=== PATIENT | female | born 1980 | race Caucasian/White ===

== ENCOUNTER 2023-11-26 08:42 | Observation (INO) | payer BC, SELFPAY ==
[2023-11-26] VITALS (7 sets, daily range): BP systolic 136–140; BP diastolic 76–96; PULSE 82–99; RESP 13–24; TEMP 36.4–36.5; O2SAT 99–100; BMI 25.4
--- NOTE | ~2023-11-26 | CT_ITS ---
EXAMINATION: CTA brain carotid DATE: 11/26/2023 09:31 INDICATION: Cerebral vascular accident. Left facial weakness. TECHNIQUE: Computed tomographic angiography (CTA) of the head was performed with 100 mL Omnipaque-350 intravenous contrast. CTA of the neck was performed with intravenous contrast. Automated exposure co ntrol and iterative reconstruction technique were employed. The dose-length product was 1070.65 mGy-c m. Maximum intensity projection and volume rendered 3D-reconstructions were created by the [address] on a separate workstation. COMPARISON: Head CT 11/26/2023 FINDINGS: HEAD CTA: There is no intracranial hemorrhage, acute infarction, or abnormal intracranial mass lesion . The ventricles are normal in size. The orbits are normal. The paranasal sinuses are clear. There is a small left mastoid effusion. The vertebral arteries are codominant. There is no significant stenos is of basilar artery or the posterior cerebral arteries. There is no significant stenosis of intracra nial internal carotid arteries or anterior or middle cerebral arteries. Anterior communicating artery is normal. There is no aneurysm. The posterior communicating arteries are normal. NECK CTA: There are no pathologically enlarged lymph nodes. There is no significant stenosis of the v ertebral arteries. There is minimal plaque in the proximal internal carotid arteries. There is 0% raymond nosis of the proximal right internal carotid artery relative to normal distal artery lumen diameter ( NASCET criteria). There is 0% stenosis of the proximal left internal carotid artery relative to kendra l distal artery lumen diameter. There is moderate spondylosis at C6-C7 and mild spondylosis at other levels. IMPRESSION: 1. Normal brain. No aneurysm or significant intracranial arterial stenosis. 2. 0% stenosis of the proximal internal carotid arteries relative to normal distal artery lumen diame ters (NASCET criteria). Reviewed, dictated and finalized at location A. PEMENT MAKER IMPRESSION: 1. Normal brain. No aneurysm or significant intracranial arterial stenosis. 2. 0% stenosis of the proximal internal carotid arteries relative to normal dis tamera artery lumen diameters (NASCET criteria).
--- NOTE | ~2023-11-26 | CT_ITS ---
EXAMINATION: CT brain wo con DATE: 11/26/2023 09:20 INDICATION: Cerebral vascular accident. Facial weakness. TECHNIQUE: Computed tomography (CT) of the head was performed without intravenous contrast. The mA wa s adjusted according to patient size. Iterative reconstruction technique was employed. The dose-lengt h product was 605.33 mGy-cm. COMPARISON: None FINDINGS: There is no intracranial hemorrhage, acute infarction, or abnormal intracranial mass lesion . There is a prominent perivascular space in the right basal ganglia. The ventricles are normal in si ze. The paranasal sinuses are clear. There is a small left mastoid effusion. The orbits are normal. IMPRESSION: 1. Normal brain. I called this result to Bharti Friedman. Reviewed, dictated and finalized at location A. VISUALIZATION DEVELOPER
--- NOTE | ~2023-11-26 | MR_ITS ---
MRI of the brain Clinical History: Right face paresthesia Technique: Axial and sagittal T1-weighted images were acquired. These were followed by axial T2-weigh lo, diffusion weighted, gradient, and FLAIR images. Coronal Following intravenous administration of 14 cc MultiHance gadolinium, T1-weighted fat-sat imaging was performed through the brain in the axia l and coronal planes. Coronal and axial T1-weighted postcontrast and coronal imaging was performed th rough the internal auditory canals. Findings: There is no acute infarct, intracranial hemorrhage, or mass lesion. No abnormal signal seen in the brain parenchyma. Ventricles and subarachnoid spaces are unremarkable. Orbits are unremarkable. There is mild fluid in left mastoid air cells. Remaining paranasal sinuses and right mastoid air cells are clear. Major intr acranial flow voids are intact. Sagittal midline structures are intact. No abnormal mass lesion seen at the internal auditory canals or cerebellopontine angle regions. No abnormal postcontrast enhancement identified. IMPRESSION: Unremarkable exam. Reviewed, dictated and finalized at location . NAUTICS TEACHER IMPRESSION: Unremarkable exam.
--- NOTE | ~2023-11-26 | XR_ITS ---
XR chest 1V portable DATE: 11/26/2023 09:39 INDICATION: Right facial numbness. Cerebrovascular accident. TECHNIQUE: Portable upright AP chest on at 0938 hours COMPARISON: None FINDINGS: Normal heart size. No hilar or mediastinal enlargement. No pulmonary infiltrate or consolid ation, pleural effusion or pulmonary vascular congestion or pneumothorax is detected. IMPRESSION: Negative Reviewed, dictated and finalized at location L. RUMENTAL MUSICIAN IMPRESSION: Negative
--- NOTE | 2023-11-26 09:05 | ECG_ITS ---
Measurements Intervals [place] Rate: 83 P: 60 [place]: 149 QRS: 6 QRSD: 96 T: 42 QT: 360 QTc: 425 Interpretive Statements SINUS RHYTHM NORMAL ECG NO PREVIOUS ECG AVAILABLE FOR COMPARISON Electronically Signed On 11-26-2023 10:00:02 THERMOSPRAY OPERATOR by Brian Layton D.O.
[2023-11-26 09:12] LABS: Glucose Point of Care 91 mg/dl (65-105)
[2023-11-26 09:17] LABS: Basophils Percent Auto 0.3 % (0.2-1.2); Eosinophils Absolute Auto 0.1 K/mm3 (0-0.3); Eosinophils Percent Auto 0.8 % (0-4.4); Hematocrit 40.5 % (37.0-47.0); Hemoglobin 13.4 g/dL (12.0-15.0); Immature Granulocyte Absolute 0.01 K/mm3 (0.00-0.031); Immature Granulocyte Percent A 0.1 % (0-0.5); Lymphocytes Absolute Auto 2.51 K/mm3 (0.9-3.2); Lymphocytes Percent Auto 34.5 % (18.3-44.2); Mean Corpuscular HGB Conc 33.1 g/dl (32-36); Mean Corpuscular Hemoglobin 29.2 pg (26-34); Mean Corpuscular Volume 88.2 fl (80-100); Mean Platelet Volume 8.9 fl (7.4-10.4); Monocytes Absolute Auto 0.6 K/mm3 (0.1-0.6); Neutrophils Absolute Auto 4.1 K/mm3 (1.3-6.7); Neutrophils Percent Auto 56.3 % (45.5-73.1); Platelet Count Result 246 k/mm3 (150-375); Red Blood Count 4.59 M/mm3 (4.2-5.4); Red Cell Distribution Width 12.1 % (11.5-14.5); White Blood Count 7.3 K/mm3 (4.5-10.0)
--- NOTE | 2023-11-26 09:19 | ED.NEUROSD ---
HPI - Neuro Symptoms/Deficit General Chief Complaint: Neuro Symptoms/Deficit <DELILAH Craven Last Filed: 11/26/23 18:25> Stated Complaint: right facial numbness <DELILAH Craven Last Filed: 11/26/23 18:25> Time Seen by Provider: 11/26/23 09:01 <DELILAH Craven Last Filed: 11/26/23 18:25> Source: patient <DELILAH Craven Last Filed: 11/26/23 18:25> Mode of arrival: ambulatory <DELILAH Craven Last Filed: 11/26/23 18:25> Limitations: no limitations <DELILAH Craven Last Filed: 11/26/23 18:25> History of Present Illness HPI Narrative: Patient is a 43-year-old female who presents the ED with report of right-sided facial paresthesias. Patient reports she has been having bilateral ear pain, worse on the right side for the last 3 days. States pain became worse last night. She also reports having intermittent blurry vision in her left eye over the last couple of days. She thought this may be related to her contacts and made an appointment with her eye doctor. This morning, when she woke up, she noticed a different sensation to her right-sided face, stating that right cheek and jaw felt numb. Her daughter then noticed her smile seemed unequal and patient prompted to the ED. Patient denies any slurred speech or confusion but states she felt foggy today. She also notes her taste was altered yesterday, describing things as tasting like metal. Denies numbness or weakness leg. Denies dizziness, headache, recent cough/cold sx's, fevers, ear drainage, N/V, rash. <DELILAH Craven Last Filed: 11/26/23 18:25> Related Data Home Medications: Home Medications Medication Instructions Recorded Confirmed Adult One Daily Multivitamin 1 tablet PO DAILY 11/26/23 11/26/23 lisinopril 10 mg tablet 10 mg PO HS 11/26/23 11/26/23 <Bharti Friedman PA-C - Last Filed: 11/26/23 18:25> Allergies/Adverse Reactions: Allergies Allergy/AdvReac Type Severity Reaction Status Date / Time No Known Allergies Allergy Verified 11/26/23 08:58 <Bharti Friedman PA-C - Last Filed: 11/26/23 18:25> Review of Systems Review of Systems: CONSTITUTIONAL: Denies fever, chills, or sweats. ENT: See HPI. CARDIOVASCULAR: Denies chest pain, palpitations, or edema. RESPIRATORY: Denies cough or dyspnea. GASTROINTESTINAL: Denies abdominal pain, nausea, vomiting. MUSCULOSKELETAL: Denies back pain, extremity pain, myalgia. NEUROLOGIC: see HPI. <Bharti Friedman PA-C - Last Filed: 11/26/23 18:25> All systems reviewed & are unremarkable except as noted in HPI and below <Bharti Friedman PA-C - Last Filed: 11/26/23 18:25> PMFSH Past Medical History Medical History: Medical History Hypertension <Bharti Friedman PA-C - Last Filed: 11/26/23 18:25> Social History Social History: Social History Social History: Surrogate medical decision maker: Percy Gomes, spouse. Code status: Full code. Smoking status: Never smoker <Bharti Friedman PA-C - Last Filed: 11/26/23 18:25> Exam Narrative: GENERAL: Well appearing, well-nourished, non-toxic, in no acute distress. HEAD: Normocephalic, atraumatic. EYES: PERRL/EOMI, conjunctivae clear bilaterally. No nystagmus. ENT: TMs clear bilaterally. No evidence of AOM/AOE, no cerumen impaction. No vesicles. NECK: Supple. No meningeal signs. RESPIRATORY: Airway patent, respirations nonlabored. Clear to auscultation bilaterally, no rales, rhonchi, wheezing. CARDIOVASCULAR: Regular rate and rhythm without murmurs, rubs, or gallops. Radial pulses 2+ and equal bilaterally. MUSCULOSKELETAL: Moves all extremities. No gross deformities. SKIN: Warm, dry, normal color. No rashes. NEURO: A&O X3. Speech clear. Follows commands. CN
[2023-11-26 09:23] LABS: Estimated CRCL calculation 60 ml/min; Estimated Glomerular Filt Rate > 60
[2023-11-26 09:26] LABS: Alanine Aminotransferase 12 U/L (6-35); Albumin Level 4.3 g/dL (3.5-5.1); Alkaline Phosphatase 46 U/L (38-126); Anion Gap 5 mmol/L (8-16); Aspartate Amino Transferase 22 U/L (14-36); Bilirubin,Total 0.3 mg/dL (0.2-1.3); Blood Urea Nitrogen 13 mg/dL (7-17); Calcium 9.2 mg/dL (8.4-10.2); Carbon Dioxide 28 mmol/L (22-30); Chloride 104 mmol/L (98-107); Estimated CRCL calculation 74 ml/min; Estimated Glomerular Filt Rate > 60; Glucose 98 mg/dL (65-110); Prothrombin Time 13.2 Seconds (11.1-14.7); Sodium 137 mmol/L (137-145)
[2023-11-26 09:27] LABS: Partial Thromboplastin Time 27.9 SECONDS (22.3-36.8)
[2023-11-26 09:37] LABS: Troponin I < 0.012 ng/mL (0.000-0.034)
[2023-11-26 10:37] LABS: Appearance Urine Cloudy (Clear); Bacteria Urine 4+ /hpf; Bilirubin Urine Negative (Negative); Blood Urine Negative (Negative); Color Urine Yellow (Yellow); Glucose Urine UA Negative (Negative); Ketones Urine Negative (Negative); Leukocyte Esterase Ur 2+ LEU/UL (Negative); Need Manual Microscopic Reviewed; Nitrate Urine Negative (Negative); Protein Urine Negative (Negative); RBC Urine 21-50 /hpf (0-2); Specific Grav Ur 1.054 (1.001-1.035); Squamous Epithelial Cell Urine Moderate /hpf (Few); Urobilinogen Urine 0.2 mg/dL (<2.0); pH Urine 7.5 (5.0-9.0)
[2023-11-26 10:43] LABS: Add Urine Microscopic? YES
[2023-11-26] MEDS: SODIUM CHLORIDE 0.9% IV 1,000 ML 999 ML IV CONT (10:54)
--- NOTE | 2023-11-26 13:55 | PM.IMHP ---
H&P: HPI History of Present Illness Date/Time: 11/26/23 13:55 Chief Complaint: Drooping and numbness to the right side of the face. Narrative: This is a 43-year-old female with hypertension who presented to the emergency department from home for evaluation of drooping and numbness to the right side of her face. The patient provides the following history. She reports having bilateral ear pain, right greater than left, over the last week and a half and she was seen by her doctor last week and was told that her exam was normal. The last couple of days the pain has become worse in the right ear. She has also noticed intermittent blurry vision in the left eye for couple of days as well and she made an upcoming appointment with her eye doctor. Upon waking this morning she felt numbness to the right side of her cheek and jaw and her daughter noticed her smiled seemed unequal. While in MRI she noticed that she was having difficulties closing her right eye. She denies vertigo, headache, slurred speech, difficulties swallowing, rashes, cold and flu symptoms, weakness, palpitations, and sensations of irregular heartbeat. She was afebrile on arrival to the ED. Her blood pressure has been as high as 140/96. CMP and CBC were unremarkable. Brain CT was normal. Urinalysis was abnormal though she has no signs or symptoms to suggest UTI. She is being admitted in this setting for close monitoring and brain MRI. Review of Systems Review of Systems: Twelve systems were reviewed and are negative except for as per HPI. FORMERLY [facility], [facility] Past Medical History Medical History Hypertension Surgical History Surgical History (Updated 11/27/23 @ 00:10 by Princess Foster PA-C) History of appendectomy Family History Family History (Updated 11/27/23 @ 00:10 by Princess Foster PA-C) Other Family history non-contributory Social History Social History (Updated 11/27/23 @ 00:10 by Princess Foster PA-C) Social History: Surrogate medical decision maker: Percy Cruzer, spouse. Code status: Full code. Smoking status: Never smoker Alcohol intake: never Substance use: never Do You Feel Safe in your Home?: Yes Lack of Transportation: No Lack of Food: Never True Current Housing: I Have Housing Concerned About Future Housing: No Difficulty Paying Gas/Electric Bills: No Difficulty Paying for Meds: No Currently Unemployed: No Education: Don't Know Difficulty w/ Childcare or Family Care: No Additional living arrangements comments: Lives with spouse in their 6 children in [place]. Additional occupation/education comments: Homemaker. Spiritual care concerns: No Meds Home Medications and Allergies Home Medications Medication Instructions Recorded Confirmed Type Adult One Daily Multivitamin 1 tablet PO DAILY 11/26/23 11/26/23 History lisinopril 10 mg tablet 10 mg PO HS 11/26/23 11/26/23 History Allergies Allergy/AdvReac Type Severity Reaction Status Date / Time No Known Allergies Allergy Verified 11/26/23 08:58 Vital Signs Vital Signs - 24 hr 11/26/23 08:46 11/26/23 08:56 11/26/23 09:01 Temperature 97.6 F Pulse Rate 99 96 Respiratory Rate 18 24 H Blood Pressure 136/76 140/96 H 136/87 Pulse Oximetry 100 100 100 Oxygen Delivery Room Air 11/26/23 10:31 Temperature Pulse Rate 94 Respiratory Rate 24 H Blood Pressure 138/95 H Pulse Oximetry 100 Oxygen Delivery Exam Narrative: General: Well-developed, nontoxic-appearing female supine in bed in no distress. Weight: 71.6 kg. BMI: 25.5. HEENT: Normocephalic, atraumatic. Wearing corrective lenses. PERRL, EOMI. Sclera anicteric. Oral mucosa moist. Oropharynx clear. Neck: Supple. No carotid bruits. Respiratory: Lungs are clear to auscultation bilaterally. Cardiovascular: Regular rate and rhythm with S1-S2. No murmur, rub, or gallop. Gastrointestinal: Abdomen is soft, n
--- NOTE | 2023-11-26 13:59 | PC.NURSE ---
ordered tray at 2599
--- NOTE | 2023-11-26 19:51 | ADMGEN ---
This patient, Carmen Gomes, was admitted to Medical Room 256-. Patient/family oriented to hospital policies and general routines including ID bracelet, bed and alarms, visiting hours, pain management, procedures, bathroom and other care routines, personal items, smoking policy, room service/diet, and visiting hours. Information on how to activate the Rapid Response Team has been discussed. Patient/Family are encouraged to report perceived risks to care and to ask questions if they do not understand what they are told or what they should do.
[2023-11-27] VITALS: PULSE 97
[2023-11-27 04:00] VITALS: PULSE 83
[2023-11-27 05:14] VITALS: BP 141/82; PULSE 78; RESP 13; TEMP 36.7; O2SAT 100
[2023-11-27 08:00] VITALS: PULSE 92
[2023-11-27] MEDS: MULTIVITAMINS THERAPEUTIC TAB (*BKC) 1 TABLET PO (08:21)
--- NOTE | 2023-11-27 09:35 | PM.DS ---
DS: Admitting Diagnosis Discharge Date 11/27/23 Admitting Diagnosis Neuro symptoms DS: Discharge Diagnosis Discharge Diagnosis (1) Facial paresthesia: Code(s): R20.2 - Paresthesia of skin Status: Acute (2) Abnormal urinalysis: Code(s): R82.90 - Unspecified abnormal findings in urine Status: Acute (3) Hypertension: Code(s): I10 - Essential (primary) hypertension Status: Acute DS: Summary Hospital Course Hospital Course: 43-year-old female with past medical history of hypertension that presented to the ED on 11/26/2023 due to evaluation of right-sided weakness, numbness and facial droop. She was seen by a week prior and was told that her exam was normal. She has also symptoms of right ear pain and difficulty with taste. She does not have any vertigo, headache, slurred speech, difficulty swallowing, cold or flu-like symptoms, weakness, palpitations or chest pain or shortness of breath. CT of the head with no acute intracranial process. MRI with normal aging brain. Her UA did look infected although patient did not have any urinary symptoms. Will follow her urinary culture but not send her home on any antibiotics. Upon examination patient did have slight drooping of right side of forehead. Patient's symptoms consistent with a mild Rowe's palsy. Did start patient on prednisone. Her labs and vital signs are stable and she is medically clear for discharge at this time. Time Spent with Patient Time attestation: Total time spent providing and/or coordinating discharge services: Exam Narrative: GENERAL: Comfortable, no acute distress HENMT: moist mucous membranes EYES: EOM intact b/l NECK: no lymphadenopathy RESPIRATORY: clear to auscultation CARDIO: RRR GI: soft, nontender, bowel sounds present SKIN: no rashes EXTREMITIES: no edema, redness or tenderness NEURO: mild right upper and lower facial droop consistent with Rowe's palsy DS: Data Data Completed and Pending Labs on day of discharge: Labs from last 24 hours 11/26/23 11/26/23 10:15 09:09 Troponin I < 0.012 Urine Color Yellow Urine Appearance Cloudy H Urine pH 7.5 Ur Specific Pe Ell 1.054 H Urine Protein Negative Urine Glucose (UA) Negative Urine Ketones Negative Ur Blood (Man) Negative Urine Nitrate Negative Urine Bilirubin Negative Urine Urobilinogen 0.2 Add Ur Microanalysis Reviewed Leukocyte Esterase Rfl 2+ H Urine RBC 21-50 H Urine WBC 11-20 H Ur Squamous Epith Cells Moderate Urine Bacteria 4+ H Urine Casts 6-10 Discharge Plan Discharge Attending physician on discharge: Viraj Carreon Consulting providers: Ricki Phipps; Bharti Friedman Discharging Clinician: Sil Leon Patient Disposition: Home, Self-Care Activity: unlimited Diet: regular Discharge Instructions: For [place] Palsy: Medication - prednisone 60 mg daily for 7 days. Will call you if urine culture comes back as abnormal. DISCHARGE INSTRUCTIONS: Call your local emergency number (078 in the [place]) or have someone else call if: You have any of the following signs of a stroke: -Numbness or drooping on one side of your face -Weakness in an arm or leg -Confusion or difficulty speaking -Dizziness, a severe headache, or vision loss -You have a seizure. -You have chest pain or shortness of breath. -You cough up blood. Seek care immediately if: -Your arm or leg feels warm, tender, and painful. It may look swollen and red. -You have unusual or heavy bleeding. -You have a severe headache or feel dizzy. Call your doctor or neurologist if: -Your blood pressure or blood sugar level is higher or lower than you were told it should be. -You have questions or concerns about your condition or care. Warning signs of a stroke: The words BE FAST can help you remember andrecognize warning signs of a stroke: B = Balance: Sudden loss of balance E = Eyes: Loss of vision in one
--- NOTE | 2023-11-29 09:31 | PC.NURSE ---
Urine cx shows no growth.
== END 2023-11-27 10:55 | disposition home or self-care (01) ==
LOC: ANHED 12:51 → ANH2MED 11-27 09:39
PROVIDERS: Admitting Provider General Practice; Emergency Provider Physician Assistant; PCP Nurse Practitioner; Visit Provider Family Medicine
DX: R20.2 Paresthesia of skin (principal); H53.8 Other visual disturbances; H92.03 Otalgia, bilateral; R43.9 Unspecified disturbances of smell and taste; R82.90 Unspecified abnormal findings in urine; I10 Essential (primary) hypertension; Z79.899 Other long term (current) drug therapy
CPT/HCPCS: 36415; 70450; 70496; 70498; 70553; 71045; 80053; 81001; 81025; 82948; 84484; 85025; 85610; 85730; 87086; 93005; 96365; 99285; A9270; A9577; G0378; J0696; J7030; Q9967